=== PATIENT | male | born 1950 | race Caucasian/White ===

== ENCOUNTER → 2016-09-16 | Outpatient (CLI) | payer MEDICARE, BC ==
--- NOTE | 2016-09-16 16:32 | RADRPT ---
PROCEDURE: Right knee radiographs. CLINICAL INDICATION: Right knee pain. TECHNIQUE: Three views. Weight bearing. Frontal, lateral, and patellar view. COMPARISON: No prior studies are available for comparison. FINDINGS: There is no fracture or dislocation. The soft tissues are normal. There are degenerative changes with osteophytes arising from all 3 joint compartment margins. There is medial joint compartment narrowing and deformity. There is no lytic or blastic lesion. There is no radiopaque foreign body. IMPRESSION: 1. Severe degenerative changes of the right knee. 2. No acute abnormality. RPTAT: QQ .Hernán Cheung MD, MD Date Time Electronically viewed and signed by .Hernán Cheung MD, on 09/16/2016 16:32 .R/
--- NOTE | 2016-09-16 20:49 | HKNOTE ---
DATE OF SERVICE: 09/16/2016 MAIN COMPLAINT: Pain in the right knee. HISTORY OF MAIN COMPLAINT: The patient is a 66-year-old male who underwent arthroscopic surgery on the left knee 30 years ago and on the right knee 20 years ago. A partial medial meniscectomy was pe rformed in each case. the patient states "I want to ski like I was a young kid again." The patient has had progressively increasing pain in the knee over the last 5 years. Recently, he h ad stem cells and PRP injected into his knee. This did not make very much difference. Currently, his pain in his knee is described as being mild. PRESENT COMPLAINTS: The right knee does not swell, lock, or feel unstable. He does not get rest pa in or night pain. He is not taking any medications for the pain. He has never had any back problem s. No numbness or tingling in his legs. On a level surface, he can walk as far as he likes. He do es not use walking aids. He does not limp. He does not have a shoe lift. He can clip his toenails and tie his shoelaces. SPORTING ACTIVITIES: Skiing. PAST ORTHOPEDIC HISTORY: 1. The patient injured his right acetabulum in a "dashboard break" in September of 1979. A screw is inserted into the acetabulum. 2. Right knee medial meniscectomy in 1995. 3. Left knee medial meniscectomy in 1985. ALCOHOL INTAKE: None. OTHER JOINT PROBLEMS: None. BLOOD TESTS FOR ARTHRITIS: None. PRIOR INJURIES TO HIPS OR KNEES: Only as above. 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 PAST MEDICAL HISTORY: Hypertension. PAST SURGICAL HISTORY: Only as above. ALLERGIES: NONE. MEDICATIONS: 1. Amlodipine 5 mg by mouth daily. 2. Losartan 5 mg by mouth daily. 3. Lipitor 40 mg by mouth daily. 4. Aspirin 81 mg by mouth daily. FAMILY HISTORY: Father at unstated age of heart problems. Mother at unstated age of canc er and heart problems. SYSTEMS REVIEW: Entirely negative. HABITS: The patient does not smoke. He drinks 1 to 2 alcoholic beverages a day. 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 Amilcar Newell, [address] [place] [address], [address], [place], [place] [address]. PHYSICAL EXAMINATION: GENERAL: The patient is an extremely fit looking and muscular 66-year-old male. He has an incredib ly youthful appearance and appears to be no more than perhaps 53 years old. VITAL SIGNS: Height 5 feet 6 inches, weight 175 pounds, blood pressure 185/90, temperature 98.7. GAIT: The patient's gait is normal. HIPS: Both hips have an excellent range of motion without pain. RIGHT KNEE: The right knee shows varus alignment. Active and passive extension is 0 degrees. Acti ve and passive flexion lacks 20 degrees. The medial and lateral collateral ligaments and cruciate l igaments are intact. Earnest test is negative. There is no effusion, tenderness, scarring, or cyst s. There is 6+ crepitus in the knee, none in the patella. The patella tracks normally. There is n o tenderness on the articular surface of the patella or in the patellar groove. The Q angle is norm al. IMAGING: Plain x-rays of the right knee obtained today show severe narrowing of the medial joint sp delma, but there is some remaining joint space medially. The patellofemoral joint shows there is comp lete loss of the patellofemoral joint with [id number] contact, subchondral sclerosis, intraosseous cyst formation, and osteophyte formation. There are also osteophytes along the medial joint. DIAGNOSES: 1. Severe degenerative osteoarthritis of the right knee. 2. Hypertension. 3. Hypercholesterolemia. MANAGEMENT: The patient is advised that he does have severe arthritis of his right knee. He rene hunt is not a candidate for knee replacement at this time, as he is far too functional, and the knee still has fairly good remaining articular cartilage. The most severe arthritis is in the patellofem oral joint, but remarkably he does not have much problems with stairs. His biggest problem is that he wants to go skiing in 2 weeks' time and he is hoping that there may be some modality that can elisha e him up from his pain. Under sterile conditions, I gave injection of 2 mL of Kenalog and 6 mL of 2% lidocaine into the knee . He will be seen again as necessary for further evaluation and treatment. Dictated By: RAFY SANABRIA/RUMA Conf#: [id number] DID#: [id number]
== END | disposition home or self-care (01) ==
LOC: HKI 15:38
DX: M17.11 Unilateral primary osteoarthritis, right knee (principal); I10 Essential (primary) hypertension; E78.00 Pure hypercholesterolemia, unspecified; Z79.82 Long term (current) use of aspirin
CPT/HCPCS: 20610; 73562; G0463; J3301

== ENCOUNTER → 2018-02-18 | Outpatient (CLI) | END | disposition home or self-care (01) ==

== ENCOUNTER → 2018-11-07 | Outpatient (CLI) | payer MEDICARE, BC ==
--- NOTE | 2018-11-07 21:14 | CONS ---
Assessment/Plan Assessment/Plan Hospital Course (Demo Recall) 68-year-old male with moderate to severe osteoarthritis of his right knee. He is managing his symptoms very well. His pain is 2/10. He remains very active. He has had significant success with hyaluronic acid injections. He would like to continue that today. I think this is a reasonable plan given his success in the past. Plan: Right knee Monovisc injection Low impact activities Follow-up 6 months Assessment/Plan (Daily) Right knee viscosupplementation injection procedure: Risks and benefits of viscosupplementation injection reviewed with patient. The risks include infection, failure, pain, swelling, nerve/tendon/ligament damage. The patient verbalized understanding and verbal consent was obtained prior to procedure. The right knee was prepped in a sterile fashion with alcohol and betadine the site of injection was confirmed. Anteromedial approach was used. The skin and capsule was anesthetized with 3mL 1% lidocaine. The right knee was injected with Monovisc. Injection flowed freely. Good hemostasis was achieved and no complications noted. The patient tolerated the procedure well. Limit activity and ice for 24-48 hours Consultation Date/Type/Reason Admit Date/Time Date of Consultation: Nov 07, 2018 Reason for Consultation Right knee pain Date/Time of Note DATE: 11/07/18 TIME: 21:03 Hx of Present Illness Is a 68-year-old male with a chief complaint of right knee pain. The pain began approximately years ago. The patients pain is in the medial aspect of the right knee. Pain is not radiating to the lower leg. The pain is rated as a 2/10. Patient denies complaints of numbness or tingling. The pain is exacerbated by climbing stairs and ambulation. Pain is partially relieved by NSAID's. Patient has been taking ibuprofen on a p.r.n. basis as well as using ice. He has had numerous Visco supplementation injections in the past with much success. He would like to repeat a Visco supplementation injection today. Duration: Years Injury: Yes, history of medial meniscus and ACL tear Walking tolerance: Unlimited Limp: No Support: None Swelling: No Crepitation: Yes Instability: No Stairs: Difficult Physical Therapy: No Injections: Yes NSAIDs: Ibuprofen Prior surgery: AKS right knee many years ago Back pain: No Hip pain: No Risk of AVN : No Patient denies fever, chills, shortness of breath, chest pain, nausea/vomiting, constipation, diarrhea, numbness, and tingling. Past Medical History Hypertension High cholesterol Right acetabular fracture Past Surgical History Bilateral knee arthroscopic surgery Right acetabular fixation Family History Significant Family History: no pertinent family hx Social History Alcohol Use: heavy (1-2 per day) Smoking Status: Never smoker Drug Use: none Exam/Review of Systems Exam Vitals Weight: 175 pounds Height: 5 foot 6 inches Temperature: 98.6 Heart Rate: 99 Blood Pressure: 186/100 Respiratory Rate: 14 Exam General: Alert, oriented x3. No Acute Distress. Heart: Regular rate and rhythm. Lungs: No respiratory distress. No accessory muscle use. Musculoskeletal: Right Knee This is a well developed male who is alert, oriented times three and in no apparent distress. Skin is intact over the right knee as well as the lower extremity with no abrasions, lacerations, or ulcerations. Observation of the patient's gait reveals an antalgic gait with varus thrust. Frontal plane alignment is varus. There is pain on palpation of medial joint line. The patient demonstrates grinding anteriorly with ROM. Range of motion: 3 extension to approximately 130 degrees of flexion. Collateral ligament testing reveals negative instability with varus or valgus stress at 0 and 30 degrees of flexion. Equivocal Earnest's and negative posterior drawer. Neurovascularly intact with 5/5 EHL/tibialis anterior/gastroc. Sensation intact to light touch in a sural, saphenous, deep peroneal, superficial peroneal, medial and lateral plantar nerve distribution. Palpable, symmetric dorsalis pedis and posterior tibial pulses in both lower extremities. Hip examination normal. Imaging Imaging Imaging from 2017 which were the most recent films were personally reviewed today. They include an AP, lateral, merchant view of the right knee. Demonstrate moderate to severe degenerative joint disease in the medial compartment with minimal joint space remaining. There are signs of mild to moderate arthritis in the lateral and patellofemoral compartment. There are osteophytes, subchondral cysts, subchondral sclerosis. MATEO MELO MD Nov 07, 2018 21:14
== END | disposition home or self-care (01) ==
LOC: HKI 13:34
PROVIDERS: ATTEND Orthopaedic Surgery Adult Reconstructive Orthopaedic Surgery
DX: M17.11 Unilateral primary osteoarthritis, right knee (principal); I10 Essential (primary) hypertension; E78.00 Pure hypercholesterolemia, unspecified
CPT/HCPCS: 20610; G0463; J7327